=== PATIENT | female | born 1995 | race Caucasian/White ===

== ENCOUNTER 2017-04-03 17:15 | Emergency (ER) | payer OTHER ==
--- NOTE | 2017-04-03 17:22 | PDOC ---
History of Present Illness - General History Source: Patient, Parent(s), Family Exam Limitations: No Limitations - History of Present Illness Initial Comments: 04/03/17 17:57 The patient is a 21 year old female, with a significant past medical history of sacroiliitis, fibromyalgia, ADHD, anxiety, and asthma, who presents to the emergency department complaining of a fever, diffuse body aches, nasal congestion, and cough for approximately 4 days. The patient reports her TMax has been as high as 103, while alternating between Tylenol (last dose 14:00) and Motrin(last dose at 17:00) the past 3-4 days. She reports associated joint aches, exacerbated when she cough. She reports associated nasal congestion, which is mildly alleviated with a Neti Pot every 12 hours. Patient endorses a cough, initially dry, but now productive of yellow tinged sputum. She reports associated nausea and several emetic episodes since last night (non bloody/ non bilious), but denies any abdominal pain, diarrhea, or constipation. She reports mild earache and headache, but denies any chills, sore throat, or dizziness. She denies any chest pain, shortness of breath, diaphoresis, or palpitations. Patient recently had contact with her sister, who was diagnosed with the Flu 3 days ago. Allergies: NKDA Past Surgical History: None reported Social History: Non smoker. No ETOH or recreational drug use. <Navin Preston - Last Filed: 04/03/17 17:57> <Merari Mejia - Last Filed: 04/05/17 08:06> - General Chief Complaint: Cold Symptoms Stated Complaint: FLU Time Seen by Provider: 04/03/17 17:22 Past History <Navin Preston - Last Filed: 04/03/17 17:57> - Past Medical History Asthma: Yes Psychiatric Problems: Yes (ANXIETY/ADHD) - Immunization History Td Vaccination: Yes TDAP Vaccination: Yes Immunization Up to Date: Yes - Suicide/Smoking/Psychosocial Hx Smoking Status: No Smoking History: Never smoked Years of Tobacco Use: 0 Number of Cigarettes Smoked Daily: 0 Cigars Per Day: 0 Hx Alcohol Use: No Drug/Substance Use Hx: No <Merari Mejia - Last Filed: 04/05/17 08:06> - Past Medical History Allergies/Adverse Reactions: Allergies Allergy/AdvReac Type Severity Reaction Status Date / Time No Known Allergies Allergy Verified 03/04/15 14:19 Home Medications: Ambulatory Orders Fluoxetine HCl [Prozac] 20 mg PO DAILY 03/04/15 Methylphenidate HCl [Ritalin LA] 10 mg PO TID 03/04/15 Acetaminophen [Tylenol Extra Strength] 500 mg PO TID PRN 04/03/17 Baicalin/Catechin [Limbrel 250 mg Capsule] 500 mg PO DAILY 04/03/17 Gabapentin [Neurontin] 300 mg PO HS 04/03/17 Ibuprofen 400 mg PO TID PRN 04/03/17 Lisdexamfetamine Dimesylate [Vyvanse] 40 mg PO DAILY PRN 04/03/17 Norgestimate-Ethinyl Estradiol [Ortho Tri-Cyclen Lo Tablet] 1 each PO DAILY Review of Systems - Review of Systems Able to Perform ROS?: Yes Comments:: 04/03/17 17:57 GENERAL/CONSTITUTIONAL: Yes fever. No chills. No weakness. HEAD, EYES, EARS, NOSE AND THROAT: Yes ear pain, nasal congestion. No change in vision. No ear discharge. No sore throat. CARDIOVASCULAR: No chest pain or shortness of breath. RESPIRATORY: Yes cough productive of yellow sputum. No wheezing, or hemoptysis. GASTROINTESTINAL: Yes nausea, vomiting. No abdominal pain, diarrhea or constipation. GENITOURINARY: No dysuria, frequency, or change in urination. MUSCULOSKELETAL: Yes diffuse joint aches. No muscle swelling. No neck or back pain. SKIN: No rash NEUROLOGIC: Yes headache. No vertigo, loss of consciousness, or change in strength/sensation. ENDOCRINE: No increased thirst. No abnormal weight change. HEMATOLOGIC/LYMPHATIC: No anemia, easy bleeding, or history of blood clots. ALLERGIC/IMMUNOLOGIC: No hives or skin allergy. <Navin Preston - Last Filed: 04/03/17 17:57> *Physical Exam - Vital Signs Last Vital Signs Temp Pulse Resp BP Pulse Ox 100.6 F H 109 H 18 124/80 99 04/03/17 17:16 04/03/17 17:16 04/03/17 17:16 04/03/17 17:16 04/03/17 17:16 - Physical Exam Comments: 04/03/17 17:57 GENERAL: Awake, alert, and fully oriented, in mild acute distress, actively coughing, warm to the touch. HEAD: No signs of trauma EYES: PERRLA, EOMI, sclera anicteric, conjunctiva clear ENT: No posterior oropharynx erythema or exudates. Moist mucosa. Auricles normal inspection, hearing grossly normal, TMs clear, nares patent. NECK: Normal ROM, supple, no lymphadenopathy, JVD, or masses LUNGS: Breath sounds equal, clear to auscultation bilaterally. No wheezes, and no crackles HEART: Tachycardic but regular rhythm, normal S1 and S2, no murmurs, rubs or gallops ABDOMEN: Soft, nontender, normoactive bowel sounds. No guarding, no rebound. No masses EXTREMITIES: Normal range of motion, no edema. No clubbing or cyanosis. No cords, erythema, or tenderness NEUROLOGICAL: Cranial nerves II through XII grossly intact. Normal speech, normal gait SKIN: Warm, Dry, normal turgor, no rashes or lesions noted. <Navin Preston - Last Filed: 04/03/17 17:57> ED Treatment Course - LABORATORY CBC & Chemistry Diagram: 04/03/17 18:00 04/03/17 18:00 <Merari Mejia - Last Filed: 04/05/17 08:06> Medical Decision Making - Medical Decision Making 04/03/17 18:31 pt presents to the ED complaining of nasal congestion, cough productive of yellow sputum and fever for three days. Has a sister who is also sick with the same complaints and was recently diagnosed with flu. presents today because she had an episode of vomiting last night. Symptoms are most consistent with viral illness. Will treat with fluids and zofran and reassess. Will check labs to rule out electrolyte abnormality. <Merari Mejia - Last Filed: 04/05/17 08:06> *DC/Admit/Observation/Transfer - Attestations Scribe Attestion: 04/03/17 17:57 Documentation prepared by Navin Preston, acting as medical social consultant for Merari Mejia MD. <Navin Preston - Last Filed: 04/03/17 17:57> - Discharge Dispostion Admit: No <Merari Mejia - Last Filed: 04/05/17 08:06> Diagnosis at time of Disposition: Upper respiratory infection - Discharge Dispostion Disposition: HOME Condition at time of disposition: Good - Patient Instructions Printed Discharge Instructions: DI for Viral Upper Respiratory Infection -- Adult - Post Discharge Activity Forms/Work/School Notes: Back to Work, Parent(s) Back to Work Note
[2017-04-03] MEDS ORDERED: SODIUM CHLORIDE 0.9% 1000 ML INFUS.BAG IV ONE (17:43)
[2017-04-03] MEDS ORDERED: ONDANSETRON 4 MG/2 ML VIAL IVPUSH ONE (17:43)
[2017-04-03 17:48] VITALS: BP 124/80; PULSE 109; TEMP 100.6; BMI 19.1
[2017-04-03] MEDS ORDERED: ONDANSETRON 4 MG/2 ML VIAL ONE (17:49)
[2017-04-03 18:19] LABS: BASO % 0.9 % (0-2.0); EOS % 0.1 % (0-4.5); MCH 29.4 pg (25.7-33.7); MCHC 32.6 g/dl (32.0-36.0); MEAN CELL VOLUME 90.2 fl (80-96); MEAN PLT VOLUME 8.7 fl (7.5-11.1); NEUT % 68.4 % (42.8-82.8); PLATELET COUNT 154 K/MM3 (134-434); RDW 12.6 % (11.6-15.6); WHITE BLOOD COUNT 3.7 K/mm3 (4.0-10.8)
[2017-04-03 18:35] LABS: ALBUMIN 3.6 g/dl (3.5-5.0); ALK PHOS 47 U/L (32-92); ANION GAP 8 (8-16); BILIRUBIN,TOTAL 0.5 mg/dl (0.2-1.0); CALCIUM 8.5 mg/dl (8.4-10.2); CO2 23 mmol/L (22-28); CREATININE 0.7 mg/dl (0.6-1.3); GLUCOSE,RANDOM 95 mg/dl (74-106); SGOT/AST 27 U/L (10-42); SGPT/ALT 23 U/L (10-40); TOT PROT 5.9 g/dl (6.4-8.3)
[2017-04-03] MEDS ORDERED: ACETAMINOPHEN 1000 MG/100 ML VIAL (NON FORMULARY) IVPB ONE (18:54)
[2017-04-03] MEDS ORDERED: ACETAMINOPHEN INJECTION 100 ML IVPB ONE (18:57)
== END 2017-04-03 19:50 | disposition home or self-care (01) ==
LOC: FER 17:15
PROC: 3E0337Z Introduction of Electrolytic and Water Balance Substance into Peripheral Vein, Percutaneous Approach (ICD-10-PCS; principal; 2017-04-03)
PROC: 3E033GC Introduction of Other Therapeutic Substance into Peripheral Vein, Percutaneous Approach (ICD-10-PCS; 2017-04-03)
DX: R50.9 Fever, unspecified (principal); J45.909 Unspecified asthma, uncomplicated; F90.9 Attention-deficit hyperactivity disorder, unspecified type; F41.9 Anxiety disorder, unspecified
CPT/HCPCS: 36415; 80053; 84703; 85025; 99282-25